=== PATIENT | male | born 1945 | race Caucasian/White ===

== ENCOUNTER 2022-06-28 09:36 | Emergency (ER) | payer MEDICARE, OTHER, SELFPAY ==
[2022-06-28 10:14] VITALS: BP 136/82; PULSE 58; RESP 16; TEMP 36.4; O2SAT 96; BMI 35.9
--- NOTE | 2022-06-28 11:02 | CRLHL7_ITS ---
For Patients: As a result of the Century Cures Act, medical imaging exams and procedure reports are released immediately into your electronic medical record. You may view this report before your referring provider. If you have questions, please contact your health care provider. INDICATION: Left facial numbness TECHNIQUE: Noncontrast axial CT of the head. Coronal and sagittal reformats. Bone and soft tissue algorithms. COMPARISON: MRI brain report 03/27/2011 FINDINGS: The ventricles and cortical sulci are slightly prominent. No midline shift or mass effect. No acute intracranial hemorrhage or extra-axial fluid collection. Mcgrath-white matter differentiation is grossly maintained. White matter attenuation is unremarkable for age. Intracranial vertebral and carotid plaquing. Empty appearing sella, possibly anatomic variant. Bony calvarium appears grossly intact. Mucosal thickening opacifying the right frontal recess. Clear mastoid air cells. Orbits are unremarkable. IMPRESSION: 1. No evidence of acute intracranial abnormality. 2. Mucosal thickening nearly opacifying the right frontal recess. Please note that all CT scans at this facility use dose modulation, iterative reconstruction, and/or weight-based dosing when appropriate to reduce radiation dose to as low as reasonably achievable. Dictated by Patricia Davidson MD @ 06/28/2022 12:12:08 PM (Electronically Signed)
--- NOTE | 2022-06-28 11:08 | ED.GENADULT ---
HPI - General Adult General Time Seen by Provider: 11:09 Date Seen: 06/28/22 Chief complaint: Neuro Symptoms/Altered Deficit Stated complaint: tingling on left side of face and head Time Seen by Provider: 06/28/22 10:50 Source: patient Mode of arrival: ambulatory Limitations: no limitations History of Present Illness HPI narrative: Patient is a very pleasant 76-year-old white male who presents with some left facial numbness that occurred last night, he took an aspirin, it went away. He had recurred again today. He feels a little bit of a tingling over the top part of his left parietal area little bit in his cheek. No facial weakness, no fevers chills, no COVID symptoms. He has not had Hsu's palsy before. He does not have any lid leg or mouth changes, no auditory changes no weakness of the mouth, or eyelid leg. Patient has had no chest pain breathing problem he reported. He reported the nurses that he has had some burping issues but that is been going on for many months and years he has a cardiology follow-up regularly for a check on wall motion changes in the bottom of his heart but that is been stable. He denies chest pain, neck pain or arm pain no nausea vomiting diaphoresis Related Data Home Medications Medication Instructions Recorded Confirmed amlodipine 10 mg tablet 10 mg PO QDAY 04/10/22 06/28/22 ascorbic acid (vitamin C) 500 mg mg PO 04/10/22 04/10/22 capsule atorvastatin 40 mg tablet 40 mg PO QPM 04/10/22 06/28/22 multivitamin (Daily Multi-Vitamin 1 tab PO QDAY 04/10/22 06/28/22 tablet) omega-3 fatty acids-fish oil 360 1 cap PO QDAY 04/10/22 06/28/22 mg-1,200 mg capsule (Fish Oil) Allergies Allergy/AdvReac Type Severity Reaction Status Date / Time niacin Allergy Unknown Verified 06/28/22 10:23 Review of Systems Status of ROS: Reports: 10 or more systems reviewed and unremarkable except as noted in History and below [facility] Surgical History History of repair of pyloric stenosis S/P prostatectomy S/P total knee arthroplasty Social History Smoking Status: Former smoker What tobacco products do you use: cigarettes and pipe Do you use any of these nicotine containing products: None Second hand tobacco smoke exposure: No How often do you have a drink containing alcohol: 2-4 times a month How many standard drinks containing alcohol do you have on a typical day: 1 or 2 How often do you have six or more drinks on one occasion: Never AUDIT-C Alcohol total score: 2 Non-prescribed substance use: denies use Exam Narrative: Exam Narrative: Objective: Patient is alert orient x3 very pleasant man Vital signs unremarkable No facial asymmetry, no lid lag, no mouth changes tongue protrudes midline, no skin rashes over the face. No sensory changes to palpation over the cheek or scalp Neck is supple Neurologic upper extremities unremarkable Heart rhythm regular heart murmur Abdomen benign soft Periphery good perfusion, skin warm and dry. Const: Vital Signs, click to edit/add: Vital Signs - 24 hr 06/28/22 10:14 06/28/22 11:40 Temperature 97.6 F Pulse Rate [Right Pulse Oximeter] 58 L 59 L Respiratory Rate 16 16 Blood Pressure [Ri ght Upper Arm] 136/82 134/89 Pulse Oximetry 96 97 Oxygen Delivery Me thod Room Air Room Air Course Vital Signs Vital signs: Initial Vital Signs Temperature 97.6 F 06/28/22 10:14 Temperature Source Temporal Artery Scan 06/28/22 10:14 Pulse Rate 58 L 06/28/22 10:14 Respiratory Rate 16 06/28/22 10:14 Blood Pressure 136/82 06/28/22 10:14 Blood Pressure Mean 100 06/28/22 10:14 Blood Pressure Position Sitting 06/28/22 10:14 Pulse Oximetry 96 06/28/22 10:14 Oxygen Delivery Method 06/28/22 10:14 Vital Signs Temperature 97.6 F 06/28/22 10:14 Pulse Rate 58 L 06/28/22 10:14 Respiratory Rate 16 06/28/22 10:14 Blood Pressure 136/82 06/28/22 10:14 Pulse Oximetry 96 06/28/22 10:14 Oxygen Delivery Method 06/28/22 10:14 Temperature 97.6 F 06/28/22 10:14 Pulse Rate 59 L 06/28/22 11:40 Respiratory Rate 16 06/28/22 11:40 Blood Pressure 134/89 06/28/22 11:40 Pulse Oximetry 97 06/28/22 11:40 Oxygen Delivery Method 06/28/22 11:40 Medical Decision Making MDM Narrative Medical decision making narrative: Patient has had some dysesthesia around his mouth and over his scalp. Unclear etiology does not really appear stroke-like although I would think a CT scan to rule out stroke would be appropriate. Also he has had no other neurologic complaints. He does have some sensation twisting frame changer his scalp and forehead certainly he could have some pre shingles type since or sensory change or even a Hsu's palsy developing. But this point he does not have evidence of that. I would recommend careful watching of his facial movements an eye and mouth if he develops any changes he should promptly seek recheck. Will check a head CT laboratory studies today. Disposition pending their findings. Addendum: The patient's head CT is read as negative, lab studies look reassuring, his symptoms are not really consistent up with Hsu's palsy to start treatment, but if he develops facial changes he should return to ED. would recommend if he can tolerate aspirin an aspirin daily until he sees Dr. Montano in the next couple of days. Return sooner to ED problems or concerns Lab Data Labs: Lab Results 06/28/22 06/28/22 Range/Units 11:18 11:18 WBC 5.11 (4.50-11.00) K/uL RBC 4.84 (4.30-5.90) m/uL Hgb 14.5 (13.5-17.5) gm/dL Hct 43.5 (37.0-53.0) % MCV 90 (80-100) fL MCH 30 (26-34) pg MCHC 33 (32-36) gm/dL RDW Coeff of Laura 13.0 (11.5-15.5) % Plt Count 279 (140-440) K/uL Neut % (Auto) 67.1 (42.0-72.0) % Lymph % (Auto) 20.0 (20-44) % Claiborne % (Auto) 9.4 (0.0-11.0) % Eos % (Auto) 2.7 (0.0-7.0) % Baso % (Auto) 0.6 (0.0-3.0) % Neut # (Auto) 3.43 (1.7-7.0) K/uL Lymph # (Auto) 1.02 (0.90-2.90) K/uL Claiborne # (Auto) 0.50 (0.00-0.90) K/UL Eos # (Auto) 0.14 (0.00-0.50) K/uL Baso # (Auto) 0.03 (0.00-0.30) K/uL Abs Immat Gran (auto) 0.01 (0.00-0.30) K/uL Sodium 137 (135-149) mmol/L Potassium 4.5 (3.6-5.1) mmol/L Chloride 103 (96-114) mmol/L Carbon Dioxide 25 (20-32) mmol/L BUN 23 (7-30) mg/dL Creatinine 1.1 (0.5-1.5) mg/dL Estimated Creat Clear 58.07 Estimated GFR 69 ml/min Glucose 125 H (60-115) mg/dL Calcium 9.7 (8.4-10.6) mg/dL Discharge Plan Discharge Clinical Impression: Facial tingling Patient Disposition: Home, Self-Care Condition: Improved Additional Instructions: Light activity, continue home medications, if he has tolerated aspirin he can take that daily, follow up with primary care within 48 hours, return to ED sooner problems concerns. He develops any facial weakness, or other changes he should return back to the ED. He certainly could be developing Hsu's palsy, but at this point symptoms are not consistent enough that I would recommend treatment. Activity Level: Light activity Discharge Diet: Regular Prescriptions: No Action atorvastatin 40 mg tablet 40 mg PO QPM multivitamin [Daily Multi-Vitamin] Tablet 1 tab PO QDAY amlodipine 10 mg tablet 10 mg PO QDAY omega-3 fatty acids-fish oil [Fish Oil] 360-1,200 mg capsule 1 cap PO QDAY ascorbic acid (vitamin C) 500 mg capsule PO Follow Up/Referrals: Joel Munoz MD [Primary Care Provider] - Stand Alone Forms: IMASTE Info Instructions
--- OUTSIDE RECORDS SUMMARY | 2022-06-28 11:09 | XMS_ITS | Clinical Summary ---
:1945 Author Organization [facility] [place] [address] Care Team Providers Name Role Phone Madi Laughlin MD Unavailable Unavailable Joel Munoz MD Primary Care Provider Allergies Active Allergy Reactions Severity Noted Date Comments Lisinopril Cough Niacin Palpitations Heart pounding Medications Medication Sig Dispensed Refills Start Date End Date Status multivitamin (MVI) Take 1 tablet by 0 12/02/2010 Active tablet mouth once daily. cholecalciferol (VITAMIN Take 1 tablet by 0 12/03/19 11 Active D) 1,000 unit tablet mouth once daily. calcium carbonate Take 500 mg by 0 12/02/2010 Active CHEWABLE (TUMS) 200 mg mouth every 8 (500 mg) chewable tablet hours if needed for Heartburn. ascorbic acid (VITAMIN Take 1 tablet by 0 11/22/2012 Active C) 500 mg tablet mouth once daily. nitroglycerin Place 1 tablet 50 tablet 0 09/08/2019 Active (NITROSTAT) 0.4 mg under the tongue sublingual every 5 minutes tabletIndications: FORTUNE if needed for (dyspnea on exertion) Chest Pain. docosahexaenoic acid Take 1 Capsule 0 04/28/2011 Active (DOCOSAHEXANOIC ACID by mouth. ORAL) cyanocobalamin (Vitamin Take 1 Tablet 0 10/31/2021 Active B-12) 1,000 mcg tablet (1,000 mcg) by mouth once daily. atorvastatin (LIPITOR) Take 1 Tablet 90 Tablet 3 10/31/2021 Active 40 mg tabletIndications: (40 mg) by mouth Non-occlusive coronary at bedtime. artery disease, Hyperlipidemia, unspecified hyperlipidemia type ferrous sulfate 325 mg Take 1 Tablet 90 Tablet 3 11/02/2021 Active delayed release (325 mg) by tabletIndications: Iron mouth once daily deficiency anemia, with a meal. unspecified iron deficiency anemia type amLODIPine (NORVASC) 10 Take 1 Tablet 90 Tablet 3 01/09/2022 Active mg tabletIndications: (10 mg) by mouth Hypertension, once daily. 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 focal infiltrating well dif ferentiated adenocarcinoma Personal history of colonic polyps 12/08/2011 Overview: Colonoscopy 11/2011 normal repeat in 5 ye ars Colonoscopy 01/2017 hyperplastic polyp re peat in 5 years Obesity 12/23/2010 Prediabetes 12/23/2010 Unspecified essential hypertension 01/23/2008 Resolved Problems Problem Noted Date Resolved Date Anemia of chronic disease 12/24/2010 08/06/2017 Malignant neoplasm of prostate 01/23/2008 1 Overview: 1998 Other and unspecified hyperlipidemia 04/2013 Elevated prostate specific antigen (PSA) 11/05/2008 Encounters Date Type Specialty Care Team Description 04/25/2022 Telephone Joel Munoz MD 04/18/2022 Office Visit Joel Munoz MD Derm Problem (Spot on head) 04/18/2022 Travel from Last 3 Months Immunizations Name Administration Dates Next Due COVID-19 vaccine (Rowdy-J&J) EILEEN BURCIAGA 02/10/2021 Influenza, IIV3 (Age >=3 years) 08/19/2007, 11/08/2006 Pneumococcal Poly,23-Valent (Pneumovax) 02/28/2010 Pneumococcal conj 13-Valent (Prevnar 13) 03/24/2015 Td (Age >=7 Years) 11/30/2004 Tdap 01/19/2022, 12/02/2010 Zoster (Zostavax-ZVL, live) 01/05/2014 Family History Medical History Relation Name Comments Hypertension Father at 90. had pacer Cancer-breast Mother Relation Name Status Comments Father had by pass Mother Social History Tobacco Use Types Packs/Day Years Used Date Former Smoker 1.5 7 Quit: 09/17/18 65 Smokeless Tobacco: Never Used Tobacco Cessation: Counseling Given: Yes Alcohol Use Standard Drinks/Week Comments Yes 5 (1 standard drink = 0.6 oz pure alcoho l) a couple beers per month Alcohol Habits Answer Date Recorded How often do you have a drink containing Monthly or less 09/02/2020 alcohol? How many drinks containing alcohol do you have 1 or 2 08/12/2019 on a typical day when you are drinking? How often do you have six or more drinks on Not asked one occasion? 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 Respiratory Rate 14 05/20/2020 8:38 AM CDT Oxygen Saturation 98% 04/18/2022 9:05 AM CDT Inhaled Oxygen Concentration - - Weight 112.7 kg (248 lb 8 oz) 04/18/2022 9:05 AM CDT Height 180.5 cm (5' 11.06) 10/31/2021 8:11 AM SODA ROOM OPERATOR Body Mass Index 34.6 10/31/2021 8:11 AM SODA ROOM OPERATOR Plan of Treatment Upcoming Encounters Date Type Specialty Care Team Description 09/01/2022 Office Visit Jayden James MD [address] [facility] [address] [place], [place] [id number] (Wo rk) 11/02/2022 Office Visit Joel Munoz MD [address] [facility] [address] [place] [id number] (Wo rk) Health Maintenance Due Date Last Done Comments Hepatitis C screening for age 1208/20/1963 18-79 Zoster (shingles) series for age 0603/02/2014 01/05/2014 50+ (2 of 3) COVID-19 vaccine series (2 - 04/07/2021 02/10/2021 Booster for Rowdy series) Influenza for age 65+ 05/18/2022 08/19/2007, 11/08/2006 BMI (ht and wt on same day) for 10/31/2022 10/31/2021, 08/17, age 18+ 09/02/2020, Additional history exists Depression screening for age 12+ 10/31/2022 10/31/2021, , 08/12/2019, Additional history exists Medicare Wellness for age 65+ 10/31/2022 10/31/2021, 2019, 08/12/2019, Additional history exists Tetanus booster 01/20/2032 01/19/2022, 12/02/2010, 11/30/2004 Pneumococcal series for age 65+ Completed 03/24/2015, 02/15 Tdap Completed 01/19/2022, 12/02/2010 Results Not on filefrom Last 3 Months Insurance Payer Benefit Plan / Subscriber ID Effective Dates Phone Addre ss Type Group MEDICARE PART B MEDICARE PART B [id number] 2009-Presen ATTN: CLAIMS - HB USE ONLY HB ONLY t [address] 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 Peña Urology 12/02/10 Jani Logan 11/22/12
[2022-06-28 11:29] LABS: Basophils Absolute Auto 0.03 K/uL (0.00-0.30); Basophils Percent Auto 0.6 % (0.0-3.0); Eosinophils Absolute Auto 0.14 K/uL (0.00-0.50); Eosinophils Percent Auto 2.7 % (0.0-7.0); Hematocrit 43.5 % (37.0-53.0); Hemoglobin* 14.5 gm/dL (13.5-17.5); Immature Granulocytes Abs Auto 0.01 K/uL (0.00-0.30); Lymphocytes Absolute Auto 1.02 K/uL (0.90-2.90); Mean Corpuscular HGB Conc 33 gm/dL (32-36); Mean Corpuscular Hemoglobin 30 pg (26-34); Mean Corpuscular Volume 90 fL (80-100); Monocytes Percent Auto 9.4 % (0.0-11.0); Neutrophils Absolute Auto 3.43 K/uL (1.7-7.0); Neutrophils Percent Auto 67.1 % (42.0-72.0); Platelet Count* 279 K/uL (140-440); Red Blood Count 4.84 m/uL (4.30-5.90); White Blood Count* 5.11 K/uL (4.50-11.00)
[2022-06-28 11:31] LABS: Slide Review Reflex No
[2022-06-28 11:38] LABS: Chloride* 103 mmol/L (96-114)
[2022-06-28 11:39] LABS: Potassium* 4.5 mmol/L (3.6-5.1); Sodium* 137 mmol/L (135-149)
[2022-06-28 11:40] VITALS: BP 134/89; PULSE 59; RESP 16; O2SAT 97
[2022-06-28 11:41] LABS: Creatinine* 1.1 mg/dL (0.5-1.5); Est. Creatinine Clearance* 58.07; Estimated Glomerular Filt Rate 69 ml/min
[2022-06-28 11:42] LABS: Blood Urea Nitrogen* 23 mg/dL (7-30); Calcium* 9.7 mg/dL (8.4-10.6); Carbon Dioxide* 25 mmol/L (20-32); Glucose* 125 mg/dL (60-115)
== END 2022-06-28 12:20 | disposition home or self-care (01) ==
PROVIDERS: Emergency Provider Family Medicine; PCP Surgery
DX: R29.810 Facial weakness (principal)
CPT/HCPCS: 36415; 70450; 80048; 85025; 99284

== ENCOUNTER 2022-11-06 11:10 | Emergency (ER) | payer MEDICARE, OTHER, SELFPAY ==
[2022-11-06 11:13] VITALS: BP 167/90; PULSE 68; RESP 18; TEMP 36.6; O2SAT 96; BMI 35.5
--- NOTE | 2022-11-06 13:18 | XR_ITS ---
Patient: STEPHANIE DOWD Facility:?[facility] Patient ID:?[id number] Site Patient ID:?[id number]. Site :?[id number] Study:?XRay-Chest 2 VIEW-11/06/2022 2:04:45 PM Ordering Physician:Eleni Cottrell Final Report: INDICATION: Left-sided pain. COMPARISON: None. TECHNIQUE: PA and lateral views of the chest. FINDINGS: The cardiomediastinal silhouette and pulmonary vasculature are within normal limits. The lungs are clear. No pleural effusion or pneumothorax identified. There is a calcified granuloma within the right lung base. A moderate size gastric hiatus hernia is present. There are degenerative changes throughout the thoracic spine. IMPRESSION: No acute abnormality. Dictated by Francis Corley MD @ 11/06/2022 2:08:00 PM Signed by:?Francis Corley MD @11/06/2022 2:08:00 PM (Electronic Signature)
--- NOTE | 2022-11-06 14:45 | ED.NURSE ---
Left without receiving discharge instructions.
--- NOTE | 2022-11-06 20:11 | ED.GENADULT ---
HPI - General Adult General Date Seen: 11/06/22 Chief complaint: Fall/Minor Trauma Stated complaint: Fell earlier, L side pain Time Seen by Provider: 11/06/22 12:37 Source: patient Mode of arrival: ambulatory Limitations: no limitations History of Present Illness HPI narrative: Patient is a 77-year-old male who slipped and fell on the ice earlier today. He says he did hit his head a little bit but he did not have any loss of consciousness, does not take any blood thinners, does not have a headache. Since then he has noticed that the left side of his neck it started to hurt a little bit too but does not have any midline pain. He is really here because he has noticed since then that he has a focal area of tenderness in the left lower chest. When he lays on that side, goes to set up, moves or presses on it he has pain there. He is wondering about a possible broken rib. Does not have any shortness of breath. Does not have any abdominal pain or other back pain. Related Data Home Medications Medication Instructions Recorded Confirmed amlodipine 10 mg tablet 10 mg PO QDAY 04/10/22 11/06/22 ascorbic acid (vitamin C) 500 mg mg PO 04/10/22 08/28/22 capsule atorvastatin 40 mg tablet 40 mg PO QPM 04/10/22 11/06/22 multivitamin (Daily Multi-Vitamin 1 tab PO QDAY 04/10/22 11/06/22 tablet) omega-3 fatty acids-fish oil 360 1 cap PO QDAY 04/10/22 11/06/22 mg-1,200 mg capsule (Fish Oil) cholecalciferol (vitamin D3) 25 25 mcg PO QDAY 08/28/22 11/06/22 mcg (1,000 unit) capsule (Vitamin D3) cyanocobalamin (vitamin B-12) 100 100 mcg PO QDAY 08/28/22 11/06/22 mcg tablet (Vitamin B-12) Allergies Allergy/AdvReac Type Severity Reaction Status Date / Time niacin Allergy Unknown heart Verified 08/28/22 14:30 racing, flushed Review of Systems Status of ROS: Reports: 6 or more systems reviewed and unremarkable except as noted in History and below [facility] Surgical History History of repair of pyloric stenosis S/P prostatectomy 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) Status post total right knee replacement (08/02/16) Social History Smoking Status: Former smoker What tobacco products do you use: cigarettes Smoking quit date/years: >15 years ago and pipe Do you use any of these nicotine containing products: None Second hand tobacco smoke exposure: No How often do you have a drink containing alcohol: 2-4 times a month How many standard drinks containing alcohol do you have on a typical day: 1 or 2 How often do you have six or more drinks on one occasion: Never AUDIT-C Alcohol total score: 2 Non-prescribed substance use: denies use Exam Narrative: Exam Narrative: Vital signs as noted above. In general, an alert, well-appearing patient. Breathing easily. Head: Normocephalic, atraumatic. No hematoma, abrasion, laceration. Eyes: Pupils are equal reactive. Extraocular movements are full. Conjunctivae are normal. ENT: Mucous membranes are moist. Throat is normal. Neck: Supple without lymphadenopathy. Nontender to palpation. Heart: Regular rate and rhythm. No murmur or rub. Lungs: Clear bilaterally. No increased work of breathing, crackles or wheezes. He has an area of reproducible chest wall tenderness in the left anterior lateral chest wall. No crepitus or subQ air. No evidence of bruising or visible trauma. Abdomen: Soft and nontender. No organomegaly. Extremities: Well perfused. No edema. No calf tenderness. Pulses intact. Neurologic: Patient is alert and oriented to person and place. Speech is fluent. Face is symmetric. Moves all extremities equally. Affect: Normal. Skin: Warm and dry. Well perfused. Const: Vital Signs, click to edit/add: Vital Signs - 24 hr 11/06/22 11:13 Temperature 97.8 F Pulse Rate [Pulse Oximeter] 68 Respiratory Rate 18 Blood Pressure [Ri ght Upper Arm] 167/90 H Pulse Oximetry 96 Oxygen Delivery Me thod Room Air Documenting provider has reviewed patient's vital signs: yes Course Course Hospital Course: In the absence of significant head trauma, headache, vomiting, or anticoagulation, I do not think imaging of his head is necessary. Likewise, he does not have any posterior neck pain and I do not think cervical spine CT is needed. With regard to his chest, we discussed options of chest x-ray to evaluate for possible pneumothorax, pleural effusion/hemothorax etcetera with the understanding that we would likely not be able to see any underlying nondisplaced rib fracture, versus CT scan which may give us a chance to see rib fracture. He acknowledged that there would not be any difference in treatment if we were able to see a rib fracture or not, and therefore opted to just get a chest x-ray today. I do think that is reasonable given the minor mechanism of his accident and minimal symptoms that he is having, reassuring exam, unremarkable vital signs aside from mild hypertension. PA and lateral chest by my review did not show any abnormalities. Final radiology read is likewise negative. Have discussed with him that assuming this is the rib fracture these take about 6-8 weeks to heal. If it ends up that this is just contusion it will heal faster. Would recommend ice, Tylenol, ibuprofen is acceptable for few days if he tolerates this. Primary care follow-up for further issues, return for significant worsening such as shortness of breath, severe pain, new symptoms such as severe headache, vomiting, confusion etc.. Vital Signs Vital signs: Initial Vital Signs Temperature 97.8 F 11/06/22 11:13 Temperature Source Temporal Artery Scan 11/06/22 11:13 Pulse Rate 68 11/06/22 11:13 Respiratory Rate 18 11/06/22 11:13 Blood Pressure 167/90 H 11/06/22 11:13 Blood Pressure Mean 115 11/06/22 11:13 Blood Pressure Position Supine 11/06/22 11:13 Pulse Oximetry 96 11/06/22 11:13 Oxygen Delivery Method 11/06/22 11:13 Vital Signs Temperature 97.8 F 11/06/22 11:13 Pulse Rate 68 11/06/22 11:13 Respiratory Rate 18 11/06/22 11:13 Blood Pressure 167/90 H 11/06/22 11:13 Pulse Oximetry 96 11/06/22 11:13 Oxygen Delivery Method 11/06/22 11:13 Temperature 97.8 F 11/06/22 11:13 Pulse Rate 68 11/06/22 11:13 Respiratory Rate 18 11/06/22 11:13 Blood Pressure 167/90 H 11/06/22 11:13 Pulse Oximetry 96 11/06/22 11:13 Oxygen Delivery Method 11/06/22 11:13 Discharge Plan Discharge Clinical Impression: Left rib fracture Patient Disposition: Home, Self-Care Condition: Stable Instructions: Rib Fracture (ED) Additional Instructions: Ibuprofen or Tylenol as needed, ice. Rib fractures take about 6 weeks to heal. Based on your exam, I think he probably do have a rib fracture. If on the other hand this is simply a bruise, it will heal more quickly. Your chest x-ray is normal. You will probably have more soreness in your neck tomorrow but this should improve thereafter. If you have severe headache, vomiting, confusion or other significant head symptoms, return for re-evaluation. Prescriptions: No Action atorvastatin 40 mg tablet 40 mg PO QPM multivitamin [Daily Multi-Vitamin] Tablet 1 tab PO QDAY amlodipine 10 mg tablet 10 mg PO QDAY omega-3 fatty acids-fish oil [Fish Oil] 360-1,200 mg capsule 1 cap PO QDAY ascorbic acid (vitamin C) 500 mg capsule PO cyanocobalamin (vitamin B-12) [Vitamin B-12] 100 mcg tablet 100 mcg PO QDAY cholecalciferol (vitamin D3) [Vitamin D3] 25 mcg (1,000 unit) capsule 25 mcg PO QDAY Follow Up/Referrals: Joel Munoz MD [Primary Care Provider] - Stand Alone Forms: [employer] Info Instructions
== END 2022-11-06 14:48 | disposition home or self-care (01) ==
PROVIDERS: Emergency Provider Emergency Medicine; PCP Surgery
DX: S22.32XA Fracture of one rib, left side, initial encounter for closed fracture (principal); W00.0XXA Fall on same level due to ice and snow, initial encounter
CPT/HCPCS: 71046; 99283; 99284

== ENCOUNTER 2022-11-17 13:32 | Outpatient (CLI) | payer MEDICARE, OTHER, SELFPAY ==
--- NOTE | 2022-11-17 14:00 | CRLHL7_ITS ---
For Patients: As a result of the Century Cures Act, medical imaging exams and procedure reports are released immediately into your electronic medical record. You may view this report before your referring provider. If you have questions, please contact your health care provider. CT ANGIOGRAM HEAD DATE: 11/17/2022 CLINICAL HISTORY: Patient with brain aneurysm. TECHNIQUE: Standard helical CT image acquisition through the intracranial circulation following intravenous administration of contrast material with bolus tracking. Multiplanar reconstructed images were performed and interpreted. COMPARISON: MRA 10/09/2022. FINDINGS: There is no intracranial aneurysm or large vessel occlusion. 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 There is an infundibulum at the origin of the right posterior communicating artery. The right internal carotid artery is normal. The right middle cerebral artery and its branches are normal. The right anterior cerebral artery and its branches are normal. The left middle cerebral artery and its branches are normal. The left anterior cerebral artery and its branches are normal. The anterior communicating artery is well visualized and appears normal. The right vertebral artery and PICA are normal. The left vertebral artery and PICA are normal. The vertebral arteries are codominant. The basilar artery is patent and appears normal. The right posterior cerebral artery is normal. The left posterior cerebral artery is normal. IMPRESSION: 1. No intracranial aneurysm or large vessel occlusion. 2. 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 3. Infundibulum at the origin of the right posterior communicating artery. Please note that all CT scans at this facility use dose modulation, iterative reconstruction, and/or weight-based dosing when appropriate to reduce radiation dose to as low as reasonably achievable. Dictated by: Apoorva Villavicencio MD @ 11/17/2022 19:23:58 (Electronically Signed)
[2022-11-17 14:11] LABS: Estimated Glomerular Filt Rate 77 ml/min
== END 2022-11-17 13:33 | disposition home or self-care (01) ==
LOC: CT 13:32
PROVIDERS: PCP Surgery; Visit Provider Radiology Diagnostic Radiology
DX: I67.1 Cerebral aneurysm, nonruptured (principal)
CPT/HCPCS: 36415; 70496; 82565; Q9967

== ENCOUNTER 2023-01-22 10:25 | Outpatient (CLI) | payer MEDICARE, OTHER, SELFPAY ==
--- NOTE | 2023-01-22 11:00 | CRLHL7_ITS ---
For Patients: As a result of the Century Cures Act, medical imaging exams and procedure reports are released immediately into your electronic medical record. You may view this report before your referring provider. If you have questions, please contact your health care provider. INDICATION: Abdominal pain. Right lower quadrant pain. Right lateral side pain. Pyloric stenosis. Prostatectomy. TECHNIQUE: CT of the abdomen and pelvis. Contrast enhanced 122 cc nonionic Isovue-370 administered. COMPARISON: None. FINDINGS: Cluster of calcified granulomas at the extreme right lung base image 6 series 3. Minor fibrosis posteromedial right lower lobe of the lung image 13 series 3. Moderately large esophageal hiatal hernia. Thickening of the distal esophagus/herniated segment of the stomach. Comparison with any prior studies recommended. Endoscopy may be helpful if clinically indicated. No pleural or pericardial effusions. Calcified splenic granulomas. No splenomegaly. Accessory splenule left upper quadrant with calcified splenic granulomas seen on image 29 series 2 of no clinical significance. The liver is negative for masses or biliary ductal dilatation. Tiny calcified granuloma within the liver. Normal-appearing gallbladder. In the region of the pancreatic head, likely arising from the pancreatic head, image 34 series 2, is a well-circumscribed cystic lesion measuring 2.3 x 2.0 cm. While this could reflect an IPMN, comparison with any prior studies recommended as a 1st step. If none are available, an MRI may be helpful. No pancreatic ductal dilatation. Bilateral adrenal gland nodules likely adenomas. The nodule on the right measures 2.1 cm and on the left 1.5 cm. No hydronephrosis of either kidney. No solid masses or stones. Right renal cysts. No cysts within the left kidney. Dense vascular calcification within the abdominal aorta and iliac arteries both of which are mildly tortuous. The inferior vena cava is unremarkable. The appendix is likely present on image 83 series 2 and also image 66 series 4 and is within normal limits. There is no CT evidence for acute appendicitis. Within the low left hemipelvis is a fairly well-circumscribed low-attenuation structure possibly a small urinary bladder diverticulum or less likely a small seroma or lymphocele. This measures 2.5 x 1.9 cm. The urinary bladder although partly decompressed is otherwise grossly unremarkable. Surgically absent prostate gland and seminal vesicles. There is no evidence for small or large bowel obstruction. There is likely some degree of mild colonic constipation. Please correlate clinically. No evidence for diverticulitis. Small right inguinal hernia containing fat and a knuckle of small bowel without incarceration. Small fat containing left inguinal hernia. Possible small left-sided hydrocele incompletely visualized. The included skeleton is negative for lytic or blastic lesions. Scattered degenerative and hypertrophic change of the included lower thoracic/lumbar spine with multilevel degenerative disc disease. Mild anterolisthesis of L5 relationship to S1. IMPRESSION: 1. Small bilateral inguinal hernias right greater than left. The right inguinal hernia contains a knuckle of small bowel without incarceration. The left inguinal hernia contains only fat. 2. Possible colonic constipation. Please correlate clinically. There is no evidence for appendicitis or diverticulitis. 3. Cystic lesion in the pancreatic head possibly an IPMN. Comparison or follow-up recommended. This could include an MRI of the pancreas. 4. Bilateral adrenal gland nodules right greater than left likely due to adenomas. 5. Granulomatous change right lung base as well as within the liver and spleen. 6. Right renal cysts. Moderately large hiatal hernia. Thick-walled herniated segment. Consider endoscopy if not previously performed. Please note that all CT scans at this facility use dose modulation, iterative reconstruction, and/or weight-based dosing when appropriate to reduce radiation dose to as low as reasonably achievable. Dictated by Blair Garcia MD @ 01/22/2023 7:06:58 PM (Electronically Signed)
[2023-01-22 11:21] LABS: Estimated Glomerular Filt Rate 77 ml/min
== END 2023-01-22 10:26 | disposition home or self-care (01) ==
LOC: CT 10:26
PROVIDERS: PCP Surgery; Visit Provider Student in an Organized Health Care Education/Training Program
DX: R10.31 Right lower quadrant pain (principal); K40.90 Unilateral inguinal hernia, without obstruction or gangrene, not specified as recurrent; K59.00 Constipation, unspecified; K86.2 Cyst of pancreas; N28.1 Cyst of kidney, acquired
CPT/HCPCS: 36415; 74177; 82565; Q9967

== ENCOUNTER 2023-05-31 13:42 | Emergency (ER) | payer MEDICARE, OTHER, SELFPAY ==
[2023-05-31] VITALS (11 sets, daily range): BP systolic 148–152; BP diastolic 82–94; PULSE 57–89; RESP 18–20; TEMP 36.6; O2SAT 95–99; BMI 35.2
[2023-05-31 14:20] LABS: Troponin, Point-of-Care* 0.01 ng/ml (0.01-0.04)
--- NOTE | 2023-05-31 14:20 | CRLHL7_ITS ---
For Patients: As a result of the Century Cures Act, medical imaging exams and procedure reports are released immediately into your electronic medical record. You may view this report before your referring provider. If you have questions, please contact your health care provider. INDICATION: Shortness of breath, chest pain. TECHNIQUE: Chest 2 views. COMPARISON: Chest radiograph 11/06/2022. FINDINGS: No focal consolidation, pleural effusion, or pneumothorax. Calcified granuloma right lung base. Linear atelectasis or scarring left lung base. Heart size upper limits of normal. Normal pulmonary vascularity. Moderate hiatal hernia. Degenerative changes of the spine. Chronic anterior wedging of a mid thoracic vertebral body. IMPRESSION: 1. No acute cardiopulmonary findings. 2. Moderate hiatal hernia. Dictated by Cheyanne Sanchez MD @ 05/31/2023 3:56:22 PM (Electronically Signed)
--- NOTE | 2023-05-31 14:32 | ED_ITS ---
HPI - Chest Pain General Time Seen by Provider: 14:32 Date Seen: 05/31/23 Chief Complaint: Chest Pain Stated Complaint: chest pain Time Seen by Provider: 05/31/23 14:07 History of Present Illness HPI narrative: This is a 77-year-old male with a past medical history including hypertension, pyloric stenosis, history of prostate cancer with prostatectomy, bilateral knee replacements. He presents to the ER today for evaluation of chest pain. He does not have any known history of coronary artery disease, heart valve disease or other cardiac problem. He has had a history of chest pains in the past and has had previous workup through his primary care provider is [facility] and through the software applications architect from [facility] (presumably [facility]? ). He reports that in the past he has had an echocardiogram that was presumably normal and a stress test that was normal. After his most recent check with his software applications architect they told him that if he had increasing episodes of pain that they would want him to go to the ER and probably be transferred up to [place] for and further testing (possibly an angiogram, he thinks). He notes that since last week he has had more frequent episodes of pain. Last Sunday at [facility] day he he was starting to have substernal chest discomfort when he walked more than a block. He walked a block and experience pain. It went away when he rested. He then had recurrence of pain when he walked another block and then got better when he rested again. He has had intermittent chest pains, typically triggered by exertion since then. He notes the often the pain get better when he sits down and belches and rests. He has been having chest pain almost every day since last Sunday. His most recent episode of chest pain occurred today when he was walking around the [employer] grocery store. It lasted for a few minutes when he was at the checkout I will and went away after he belched. It was at roughly 1:00 p.m.. He went to his [facility] clinic to try to get an appointment but was told by their nurse to come here to the ER. Related Data Home Medications Medication Instructions Recorded Confirmed amlodipine 10 mg tablet 10 mg PO QDAY 04/10/22 11/06/22 ascorbic acid (vitamin C) 500 mg mg PO 04/10/22 08/28/22 capsule atorvastatin 40 mg tablet 40 mg PO QPM 04/10/22 11/06/22 multivitamin (Daily Multi-Vitamin 1 tab PO QDAY 04/10/22 11/06/22 tablet) omega-3 fatty acids-fish oil 360 1 cap PO QDAY 04/10/22 11/06/22 mg-1,200 mg capsule (Fish Oil) cholecalciferol (vitamin D3) 25 25 mcg PO QDAY 08/28/22 11/06/22 mcg (1,000 unit) capsule (Vitamin D3) cyanocobalamin (vitamin B-12) 100 100 mcg PO QDAY 08/28/22 11/06/22 mcg tablet (Vitamin B-12) Allergies Allergy/AdvReac Type Severity Reaction Status Date / Time niacin Allergy Unknown heart Verified 05/31/23 13:51 racing, flushed [facility] Surgical History History of repair of pyloric stenosis S/P prostatectomy 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) Status post total right knee replacement (08/02/16) Social History (Updated 11/06/22 @ 20:15 by Ronit Bishop MD) Smoking Status: Former smoker What tobacco products do you use: cigarettes Smoking quit date/years: >15 years ago and pipe Do you use any of these nicotine containing products: None Second hand tobacco smoke exposure: No How often do you have a drink containing alcohol: 2-4 times a month How many standard drinks containing alcohol do you have on a typical day: 1 or 2 How often do you have six or more drinks on one occasion: Never AUDIT-C Alcohol total score: 2 Non-prescribed substance use: denies use service: No Exam Narrative Exam Narrative: Constitutional: Appears well-developed and well-nourished. Alert. Conversant. Non toxic. HENT: Head: Atraumatic. Nose: Nose normal. Mouth/Throat: Oral mucosa is clear and moist. no trismus. Pharynx normal. Tonsils symmetric. No tonsillar enlargement, erythema, or exudate. Eyes: Conjunctivae normal. EOM normal. Pupils equal, round, and reactive to light. No scleral icterus. Neck: Normal range of motion. Neck supple. No tracheal deviation present. No JVD Cardiovascular: Normal rate, regular rhythm. No gallop. No friction rub. No murmur heard. Symmetric radial and PT artery pulses Pulmonary/Chest: Effort normal. No stridor. No respiratory distress. No wheezes. No rales. No rhonchi . No tenderness. Abdominal: Soft. Bowel sounds normal. No distension. No mass. No tenderness. No rebound. No guarding. Musculoskeletal: RUE: Normal range of motion. No tenderness. No deformity LUE: Normal range of motion. No tenderness. No deformity RLE: Normal range of motion. No edema. No tenderness. No deformity LLE: Normal range of motion. 2+ edema which has been present for the past year to, unchanged lately.. No tenderness. No deformity Neurological: Alert and oriented to person, place, and time. Normal strength. CN II-VII intact. No sensory deficit. GCS eye subscore is 4. GCS verbal subscore is 5. GCS motor subscore is 6. Normal coordination Skin: Skin is warm and dry. No rash noted. No pallor. Normal capillary refill. Psychiatric: Normal mood. Normal affect. Const Vital Signs, click to edit/add: Vital Signs - 24 hr 05/31/23 13:47 05/31/23 14:14 05/31/23 15:37 Temperature 97.8 F Pulse Rate 57 L Pulse Rate [Right Pulse Oximeter] 89 78 Respiratory Rate 20 18 Blood Pressure [Right Upper Arm] 152/82 H 148/94 H Pulse Oximetry 96 97 97 Oxygen Delivery Method Room Air Room Air 05/31/23 15:50 05/31/23 16:00 05/31/23 16:15 Temperature Pulse Rate 68 66 66 Pulse Rate [Right Pulse Oximeter] Respiratory Rate Blood Pressure [Right Upper Arm] Pulse Oximetry 98 95 96 Oxygen Delivery Method Course Reevaluation(s) Reevaluation #1: Recheck-napping in bed. Arouses easily. No active chest pain. Discussed with Cardiology, Dr. Husain. We discussed the patient's presentation, his recent episodes of chest pain. Cardiology informs me that he has previously had Negative workup with an echo that was normal in 2021 an a stress test that was normal in 2019. Cardiology recommends that if we get serial enzymes that are negative if the patient go home and arrange an outpatient Lexiscan that could be done through his primary care or through the Cardiology Clinic here in [place]. I discussed this plan of care with the patient. He would agree to stay here for a 2nd troponin. This is ordered to be drawn 3 hours after the 1st. The patient remains hemodynamically stable and chest pain-free. I ambulated the patient myself in the ER out of the ER, all the way to the hospital front door and back, approximately 2 blocks. He did not have any chest pain or other symptoms during the ambulation. He felt fine. Vital Signs Vital signs: Initial Vital Signs Temperature 97.8 F 05/31/23 13:47 Temperature Source Temporal Artery Scan 05/31/23 13:47 Pulse Rate 89 05/31/23 13:47 Pulse Rhythm Regular 05/31/23 13:47 Pulse Strength 3+ Normal 05/31/23 13:47 Respiratory Rate 20 05/31/23 13:47 Blood Pressure 152/82 H 05/31/23 13:47 Blood Pressure Mean 105 05/31/23 13:47 Blood Pressure Position Supine 05/31/23 13:47 Pulse Oximetry 96 05/31/23 13:47 Oxygen Delivery Method Room Air 05/31/23 13:47 Vital Signs Temperature 97.8 F 05/31/23 13:47 Pulse Rate 89 05/31/23 13:47 Respiratory Rate 20 05/31/23 13:47 Blood Pressure 152/82 H 05/31/23 13:47 Pulse Oximetry 96 05/31/23 13:47 Oxygen Delivery Method Room Air 05/31/23 13:47 Temperature 97.8 F 05/31/23 13:47 Pulse Rate 66 05/31/23 16:15 Respiratory Rate 18 05/31/23 14:14 Blood Pressure 148/94 H 05/31/23 14:14 Pulse Oximetry 96 05/31/23 16:15 Oxygen Delivery Method Room Air 05/31/23 14:14 MDM - Chest Pain MDM Narrative Medical decision making narrative: This patient presents to the ER today for evaluation of chest pain that has been occurring intermittently for the past few weeks.. Differential was broad. Chest pain is concerning for possible angina given that is often triggered by exertion. However it is not triggered every time he exerts. He was able ambulate a couple of blocks here in the hospital with me without any discomfort. Also reassuring would be the fact that the chest pain resolves with belching. Nonetheless, in this gentleman we give strong consideration to ACS. He had already taken aspirin today prior to arrival. Initial EKG shows pre- existing bundle-branch blocks, LVH but no definite ischemia. First troponin is negative. I discussed with Cardiology from [facility]. They recommend that we get a 2nd troponin and if it remains normal that we should discharge the patient with a plan for an outpatient stress test (Lexiscan). I had a long discussion with the patient. I discussed my concern that his intermittent chest pain could be indicative of unstable angina (partially blocked coronary artery) which would not necessarily show up on troponin testing here in the ER. We would need either stress testing or angiogram to detect partial blockages. If this is unstable angina, there is risk of progression to complete blockage/HI, further workup to detect partial blockage is indicated as soon as possible. To get the workup done by tomorrow we would need to have the patient admitted (ie, transferred to [facility]) for workup. We are unable to do Lexiscan here in the hospital in [place]. Cardiology recommends outpatient workup. For his part, The patient would prefer to do outpatient workup . Have ordered a 2nd troponin to be drawn. If it remains undetectable will discharge the patient from the ER and he will call tomorrow for follow-up with his clinic at [facility] tomorrow. They can arrange an outpatient Lexiscan. Precautions for return to the ER right away with any more episodes of chest pain, worsening pain, or any other symptoms. Discussed with my partner, Dr. Payton, who will follow-up on the 2nd troponin. EKG shows no evidence for pericarditis. Clinical presentation not suggestive of myocarditis. No evidence of palpitations, syncope or other cardiac dysrhythmia. Chest x-ray shows no evidence for pneumonia, pneumothorax, pulmonary edema, pleural effusion, rib fracture, cardiomegaly. Mediastinum is normal on the x-ray. The patient has no ripping or tearing pain through to the back and has symmetric pulses on exam, no other acute neuro findings so I doubt aortic dissection. Risk of radiation and contrast exposure would outweigh the benefit of CT angiogram. We considered PE for this patient. D-dimer normal. He has chronic left lower extremity edema unchanged from baseline. No wheezing or bronchospasm to suggest COPD/asthma. No signs of chest wall cellulitis, shingles, injury. Lab Data Labs: Lab Results 05/31/23 05/31/23 05/31/23 Range/Units 14:09 14:10 15:50 WBC 5.68 (4.50-11.00) K/uL RBC 4.66 (4.30-5.90) m/uL Hgb 14.1 (13.5-17.5) gm/dL Hct 42.3 (37.0-53.0) % MCV 91 (80-100) fL MCH 30 (26-34) pg MCHC 33 (32-36) gm/dL RDW Coeff of Laura 12.5 (11.5-15.5) % Plt Count 273 (140-440) K/uL Neut % (Auto) 63.1 (42.0-72.0) % Lymph % (Auto) 23.9 (20-44) % Bleckley % (Auto) 9.7 (0.0-11.0) % Eos % (Auto) 2.6 (0.0-7.0) % Baso % (Auto) 0.7 (0.0-3.0) % Neut # (Auto) 3.58 (1.7-7.0) K/uL Lymph # (Auto) 1.36 (0.90-2.90) K/uL Bleckley # (Auto) 0.60 (0.00-0.90) K/UL Eos # (Auto) 0.15 (0.00-0.50) K/uL Baso # (Auto) 0.04 (0.00-0.30) K/uL Abs Immat Gran (auto) 0.00 (0.00-0.30) K/uL Imm/Tot Granulo (auto) 0.0 % D-Dimer Quant (PE/DVT) 0.40 (0.00-0.50) ug/ml Sodium 140 (135-149) mmol/L Potassium 3.9 (3.6-5.1) mmol/L Chloride 106 (96-114) mmol/L Carbon Dioxide 24 (20-32) mmol/L Anion Gap 10 (7-15) mEq/L BUN 22 (7-30) mg/dL Creatinine 1.0 (0.5-1.5) mg/dL Estimated Creat Clear 62.86 Estimated GFR 77 ml/min Glucose 148 H (60-115) mg/dL Calcium 9.8 (8.4-10.6) mg/dL Troponin I < 0.01 L (0.01-0.04) ng/mL NT-Pro-B Natriuret Pep 33 pg/mL POC Troponin I 0.01 (0.01-0.04) ng/ml Imaging Data Chest x-ray: My impression: Normal cardiac silhouette and mediastinum. Probable hiatal hernia or gastric hernia. Radiologist's impression: IMPRESSION: 1. No acute cardiopulmonary findings. 2. Moderate hiatal hernia. ECG Data Attestation: I personally reviewed and interpreted this ECG as follows: Interpretation: Normal sinus rhythm . Rate 84 VT 190. QRS axis right bundle branch block. Left anterior fascicular block. LVH with QRS widening. ST segment/T wave: No ST segment elevation or depression. QTc: 4 93 Discharge Plan Discharge Prescriptions: No Action atorvastatin 40 mg tablet 40 mg PO QPM multivitamin [Daily Multi-Vitamin] Tablet 1 tab PO QDAY amlodipine 10 mg tablet 10 mg PO QDAY omega-3 fatty acids-fish oil [Fish Oil] 360-1,200 mg capsule 1 cap PO QDAY ascorbic acid (vitamin C) 500 mg capsule PO cyanocobalamin (vitamin B-12) [Vitamin B-12] 100 mcg tablet 100 mcg PO QDAY cholecalciferol (vitamin D3) [Vitamin D3] 25 mcg (1,000 unit) capsule 25 mcg PO QDAY Follow Up/Referrals: Joel Munoz MD [Primary Care Provider] -
[2023-05-31 15:42] LABS: Basophils Absolute Auto 0.04 K/uL (0.00-0.30); Basophils Percent Auto 0.7 % (0.0-3.0); Eosinophils Absolute Auto 0.15 K/uL (0.00-0.50); Eosinophils Percent Auto 2.6 % (0.0-7.0); Hematocrit 42.3 % (37.0-53.0); Hemoglobin* 14.1 gm/dL (13.5-17.5); Lymphocytes Absolute Auto 1.36 K/uL (0.90-2.90); Lymphocytes Percent Auto 23.9 % (20-44); Mean Corpuscular HGB Conc 33 gm/dL (32-36); Mean Corpuscular Hemoglobin 30 pg (26-34); Mean Corpuscular Volume 91 fL (80-100); Monocytes Percent Auto 9.7 % (0.0-11.0); Neutrophils Absolute Auto 3.58 K/uL (1.7-7.0); Neutrophils Percent Auto 63.1 % (42.0-72.0); Platelet Count* 273 K/uL (140-440); RDW Coefficient of Variation % 12.5 % (11.5-15.5); Red Blood Count 4.66 m/uL (4.30-5.90); White Blood Count* 5.68 K/uL (4.50-11.00)
[2023-05-31 15:45] LABS: Slide Review Reflex No
[2023-05-31 15:56] LABS: Chloride* 106 mmol/L (96-114); Potassium* 3.9 mmol/L (3.6-5.1); Sodium* 140 mmol/L (135-149)
[2023-05-31 15:59] LABS: Anion Gap 10 mEq/L (7-15); Blood Urea Nitrogen* 22 mg/dL (7-30); Calcium* 9.8 mg/dL (8.4-10.6); Carbon Dioxide* 24 mmol/L (20-32); Est. Creatinine Clearance* 62.86; Estimated Glomerular Filt Rate 77 ml/min; Glucose* 148 mg/dL (60-115)
[2023-05-31 16:16] LABS: NT Pro B Type NatriureticPept* 33 pg/mL; Troponin I* < 0.01 ng/mL (0.01-0.04)
[2023-05-31 17:12] LABS: Troponin I* < 0.01 ng/mL (0.01-0.04)
--- NOTE | 2023-06-19 16:13 | ED.GENADULT ---
HPI - General Adult General Chief complaint: Chest Pain Stated complaint: chest pain Time Seen by Provider: 05/31/23 14:07 History of Present Illness HPI narrative: THIS NOTE IS AN ADDENDUM TO MY ER NOTE FROM 05/31/23 (date this patient was seen in the ER). THIS NOTE INCLUDED THE DISCHARGE DIAGNOSIS (chest pain) THAT I INADVERTENTLY OMITTED FROM MY ORIGINAL NOTE. Related Data Home Medications Medication Instructions Recorded Confirmed amlodipine 10 mg tablet 10 mg PO QDAY 04/10/22 11/06/22 ascorbic acid (vitamin C) 500 mg mg PO 04/10/22 08/28/22 capsule atorvastatin 40 mg tablet 40 mg PO QPM 04/10/22 11/06/22 multivitamin (Daily Multi-Vitamin 1 tab PO QDAY 04/10/22 11/06/22 tablet) omega-3 fatty acids-fish oil 360 1 cap PO QDAY 04/10/22 11/06/22 mg-1,200 mg capsule (Fish Oil) cholecalciferol (vitamin D3) 25 25 mcg PO QDAY 08/28/22 11/06/22 mcg (1,000 unit) capsule (Vitamin D3) cyanocobalamin (vitamin B-12) 100 100 mcg PO QDAY 08/28/22 11/06/22 mcg tablet (Vitamin B-12) Allergies Allergy/AdvReac Type Severity Reaction Status Date / Time niacin Allergy Unknown heart Verified 05/31/23 13:51 racing, flushed [facility] Surgical History History of repair of pyloric stenosis S/P prostatectomy 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) Status post total right knee replacement (08/02/16) Social History (Updated 11/06/22 @ 20:15 by Ronit Bishop MD) Smoking Status: Former smoker What tobacco products do you use: cigarettes Smoking quit date/years: >15 years ago and pipe Do you use any of these nicotine containing products: None Second hand tobacco smoke exposure: No How often do you have a drink containing alcohol: 2-4 times a month How many standard drinks containing alcohol do you have on a typical day: 1 or 2 How often do you have six or more drinks on one occasion: Never AUDIT-C Alcohol total score: 2 Non-prescribed substance use: denies use service: No Course Vital Signs Vital signs: Initial Vital Signs Temperature 97.8 F 05/31/23 13:47 Temperature Source Temporal Artery Scan 05/31/23 13:47 Pulse Rate 89 05/31/23 13:47 Pulse Rhythm Regular 05/31/23 13:47 Pulse Strength 3+ Normal 05/31/23 13:47 Respiratory Rate 20 05/31/23 13:47 Blood Pressure 152/82 H 05/31/23 13:47 Blood Pressure Mean 105 05/31/23 13:47 Blood Pressure Position Supine 05/31/23 13:47 Pulse Oximetry 96 05/31/23 13:47 Oxygen Delivery Method Room Air 05/31/23 13:47 Vital Signs Temperature 97.8 F 05/31/23 13:47 Pulse Rate 89 05/31/23 13:47 Respiratory Rate 20 05/31/23 13:47 Blood Pressure 152/82 H 05/31/23 13:47 Pulse Oximetry 96 05/31/23 13:47 Oxygen Delivery Method Room Air 05/31/23 13:47 Temperature 97.8 F 05/31/23 13:47 Pulse Rate 72 05/31/23 17:30 Respiratory Rate 18 05/31/23 14:14 Blood Pressure 148/94 H 05/31/23 14:14 Pulse Oximetry 95 05/31/23 17:30 Oxygen Delivery Method Room Air 05/31/23 14:14 Medical Decision Making Lab Data Labs: Lab Results 05/31/23 05/31/23 05/31/23 Range/Units 14:09 14:10 15:50 WBC 5.68 (4.50-11.00) K/uL RBC 4.66 (4.30-5.90) m/uL Hgb 14.1 (13.5-17.5) gm/dL Hct 42.3 (37.0-53.0) % MCV 91 (80-100) fL MCH 30 (26-34) pg MCHC 33 (32-36) gm/dL RDW Coeff of Laura 12.5 (11.5-15.5) % Plt Count 273 (140-440) K/uL Neut % (Auto) 63.1 (42.0-72.0) % Lymph % (Auto) 23.9 (20-44) % [place] % (Auto) 9.7 (0.0-11.0) % Eos % (Auto) 2.6 (0.0-7.0) % Baso % (Auto) 0.7 (0.0-3.0) % Neut # (Auto) 3.58 (1.7-7.0) K/uL Lymph # (Auto) 1.36 (0.90-2.90) K/uL [place] # (Auto) 0.60 (0.00-0.90) K/UL Eos # (Auto) 0.15 (0.00-0.50) K/uL Baso # (Auto) 0.04 (0.00-0.30) K/uL Abs Immat Gran (auto) 0.00 (0.00-0.30) K/uL Imm/Tot Granulo (auto) 0.0 % D-Dimer Quant (PE/DVT) 0.40 (0.00-0.50) ug/ml Sodium 140 (135-149) mmol/L Potassium 3.9 (3.6-5.1) mmol/L Chloride 106 (96-114) mmol/L Carbon Dioxide 24 (20-32) mmol/L Anion Gap 10 (7-15) mEq/L BUN 22 (7-30) mg/dL Creatinine 1.0 (0.5-1.5) mg/dL Estimated Creat Clear 62.86 Estimated GFR 77 ml/min Glucose 148 H (60-115) mg/dL Calcium 9.8 (8.4-10.6) mg/dL Troponin I < 0.01 L < 0.01 L (0.01-0.04) ng/mL NT-Pro-B Natriuret Pep 33 pg/mL POC Troponin I 0.01 (0.01-0.04) ng/ml Discharge Plan Discharge Clinical Impression: Chest pain Patient Disposition: Home, Self-Care Condition: Stable Instructions: Chest Pain (DC) Additional Instructions: As we discussed, it is very important for you to follow-up with your doctors as soon as possible (tomorrow) to recheck. They should arrange an outpatient stress test of your heart called a ?Lexiscan?. In the meantime, if you have more episodes of chest discomfort, or if you have worsening discomfort, more frequent episodes of discomfort, discomfort that lasts longer, or last longer than 15 minutes, return to the ER immediately. Continue on your regular blood pressure medications and aspirin 81 mg per day until you have your follow-up visit.. Activity Level: No Restrictions Discharge Diet: Regular Prescriptions: No Action atorvastatin 40 mg tablet 40 mg PO QPM multivitamin [Daily Multi-Vitamin] Tablet 1 tab PO QDAY amlodipine 10 mg tablet 10 mg PO QDAY omega-3 fatty acids-fish oil [Fish Oil] 360-1,200 mg capsule 1 cap PO QDAY ascorbic acid (vitamin C) 500 mg capsule PO cyanocobalamin (vitamin B-12) [Vitamin B-12] 100 mcg tablet 100 mcg PO QDAY cholecalciferol (vitamin D3) [Vitamin D3] 25 mcg (1,000 unit) capsule 25 mcg PO QDAY Follow Up/Referrals: Joel Munoz MD [Primary Care Provider] - Stand Alone Forms: [employer] Info Instructions
== END 2023-05-31 17:50 | disposition home or self-care (01) ==
PROVIDERS: Emergency Provider Emergency Medicine; PCP Surgery
DX: R07.9 Chest pain, unspecified (principal)
CPT/HCPCS: 36415; 71046; 80048; 83880; 84484; 85025; 85379; 93005; 99283; 99284; 99285

== ENCOUNTER 2024-07-08 09:48 | Day surgery (SDC) | payer MEDICARE, OTHER, SELFPAY ==
--- OUTSIDE RECORDS SUMMARY | 2024-07-08 09:52 | XMS_ITS | Clinical Summary ---
Author Organization [facility] Address [place], [place] [address] Care Team Providers Care Clinical Scientist Name Role Phone Madi Laughlin MD [facility] Joel Munoz MD Primary Care Provider [phone] Allergies Active Allergy Reactions Criticality Noted Date Comments Aspirin GI Bleeding 07/07/2022 Lisinopril Cough Niacin Palpitations Heart pounding Medications Medication Sig Dispensed Refills Start Date End Date Status multivitamin (MVI) tablet Take 1 tablet by mouth once daily. 0 12/02/2010 Active cholecalciferol (VITAMIN D) 1,000 unit tablet Take 1 tablet by mouth once daily. 0 12/02/2010 Active calcium carbonate CHEWABLE (TUMS) 200 mg (500 mg) chewable tablet Take 500 mg by mouth every 8 hours if needed for Heartburn. 0 12/02/2010 Active ascorbic acid (VITAMIN C) 500 mg tablet Take 1 tablet by mouth once daily. 0 11/22/2012 Active cyanocobalamin (Vitamin B-12) 1,000 mcg tablet Take 1 Tablet (1,000 mcg) by mouth once daily. 10/31/2021 Active acetaminophen (TYLENOL EXTRA STRGTH) 500 mg tabletIndication s:S/P CABG x 2 Take 2 Tablets (1,000 mg) by mouth every 6 hours if needed for Pain. Max acetaminophen dose: 4000mg in 24 hrs. 08/27/2023 Active apixaban (Eliquis) 5 mg tabletIndication s:Atrial fibrillation, unspecified type (HC) Take 1 Tablet (5 mg) by mouth two times daily. 180 Tablet 3 09/20/2023 Active omeprazole 20 mg tabletIndication s:Belching Take 1 Tablet (20 mg) by mouth once daily before a meal. 90 Tablet 3 10/10/2023 Active carvediloL (Coreg) 3.125 mg tabletIndication s:HTN (hypertension) Take 1 Tablet (3.125 mg) by mouth two times daily with meals. 180 Tablet 3 07/03/2024 Active losartan (COZAAR) 25 mg tabletIndication s:HTN (hypertension) Take 1 Tablet (25 mg) by mouth once daily. 90 Tablet 3 07/03/2024 Active rosuvastatin (CRESTOR) 20 mg tabletIndication s:S/P CABG x 2 Take 1 Tablet (20 mg) by mouth at bedtime. 90 Tablet 3 07/03/2024 Active rosuvastatin (CRESTOR) 20 mg tabletIndication s:S/P CABG x 2 Take 1 Tablet (20 mg) by mouth at bedtime. 90 Tablet 3 09/20/2023 4 Discontinue d(Reorder (E-cancel not sent)) carvediloL (Coreg) 3.125 mg tabletIndication s:HTN (hypertension) Take 1 Tablet (3.125 mg) by mouth two times daily with meals. 180 Tablet 3 10/12/2023 4 Discontinue d(*Medicati on adjustment) ferrous sulfate 325 mg delayed release tabletIndication s:Iron deficiency anemia, unspecified iron deficiency anemia type Take 1 Tablet (325 mg) by mouth two times daily with meals. 180 Tablet 3 04/17/2024 4 Discontinue d(*Patient states no longer taking) carvediloL (Coreg) 6.25 mg tabletIndication s:HTN (hypertension) Take 1 Tablet (6.25 mg) by mouth two times daily with meals. 180 Tablet 3 06/19/2024 4 Discontinue d(*Medicati on adjustment) LORazepam (ATIVAN) 1 mg tabletIndication s:Anxiety due to invasive procedure Take 1 Tablet (1 mg) by mouth one time for 1 dose. 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 Overview (08/21/2023): Coronary artery bypass grafting (left internal mammary artery to left anterior descending artery, vein graft to OM) - Dr Naik CAD (coronary artery disease) 2023 Primary osteoarthritis of both knees 2023 Overview (2023): Left TKA Jul, 2017, Right TKA 2018 Pancreatic cyst 04/26/2023 Overview (04/26/2023): Incidentally noted on CT 01/2023 - declined MRI for further evaluation 04/2023 Rotator cuff tear, right 01/09/2023 023 Colon polyp 01/26/2022 Overview (01/26/2022): Colonoscopy 01/2022 2-TA, repeat in 7 years Dilatation of aortic sinus of Valsalva 6 Overview (11/02/2021): Stable on echo 03/2021 Hyperlipidemia 11/11/2015 Primary malignant neoplasm of prostate 4 Overview (02/09/2022): Ariel 3+3. focal infiltrating well differentiated adenocarcinoma Personal history of colonic polyps 12/08/2011 Overview (02/07/2017): Colonoscopy 11/2011 normal repeat in 5 years Colonoscopy 01/2017 hyperplastic polyp repeat in 5 years Prediabetes 12/23/2010 Unspecified essential hypertension 01/23/2008 Resolved Problems Problem Noted Date Diagnosed Date Resolved Date S/P CABG (coronary artery bypass graft) 09/04/2023 09/04/2023 Left rib fracture 01/09/2023 01/09/2023 09/04/2023 Non-occlusive coronary artery disease 01/17/2017 09/04/2023 Anemia of chronic disease 12/24/2010 Obesity 12/23/2010 09/04/2023 Other and unspecified hyperlipidemia 11/22/2012 Elevated prostate specific antigen (PSA) 11/05/2008 Encounters Date Type Department Care Team Description 07/07/2024 10:45 AM CDT Preop Visit [facility] [[email or web address] [address] [facility] [address] Joel Munoz MD Preoperative Exam (Hernia at [facility] [place] 07/08/24) 07/07/2024 Travel 07/07/2024 Telephone [facility] [[email or web address]] [address] [place] [address] Rajni Patterson MD Results (US scrotum) 07/03/2024 8:30 AM CDT Office Visit [place] [address] [place] [address] Zhang Camacho MD Follow Up (F/u Visit /CLEAR FOR SURGERY ON 07/08/2024/PT states feeling good. /Needs to know if he can stop Eliquis for 3 days /Occ chest pain) 07/03/2024 Travel 06/30/2024 7:56 AM CDT - 06/30/2024 11:59 PM CDT Hospital Encounter [facility] [address] [place] [address] Joel Munoz MD Mass of pancreas; Scrotal mass 06/30/2024 Travel 06/23/2024 2:00 PM CDT Office Visit [facility] [[email or web address]] [address] [facility] [place] [address] Rajni Patterson MD Consult (Bilateral inguinal hernias ) 06/23/2024 Travel 06/19/2024 Telephone [facility] [[email or web address]] [address] [place] [address] Joel Munoz MD Results 06/19/2024 Orders Only [facility] [[email or web address]] [address] [facility] [address] Joel Munoz MD <No scans attached> 06/18/2024 9:35 PM CDT - 06/18/2024 10:48 PM CDT Emergency [facility] [address] [place] [address] Jacobo Ojeda MD Hives (Primary Dx); HTN (hypertension) Discharge Disposition: Home Self Care 06/18/2024 10:00 AM CDT Nurse/Clinic Staff Only [facility] [[email or web address]] [facility] [address] Blood Pressure (153/81) 06/18/2024 9:30 AM CDT Ancillary Procedure [facility] [[email or web address]] [address] [facility] [address] 06/18/2024 Travel 06/10/2024 8:00 AM CDT Office Visit [facility] [[email or web address]] [address] [facility] [address] Joel Munoz MD Abdominal Pain/problem (Been going on for a while) 06/10/2024 Travel 04/18/2024 Telephone [facility] [[email or web address]] [address] [facility] [address] Joel Munoz MD Results 04/17/2024 Orders Only [facility] [[email or web address]] [address] [facility] [address] Joel Munoz MD <No scans attached> 04/15/2024 8:25 AM CDT Office Visit [facility] [[email or web address]] [address] [facility] [address] Joel Munoz MD Follow Up (Low iron); Bleeding/Bruising (Bruising easily ); Foot Problem (Foot pain left foot on the top) 04/15/2024 Travel from Last 3 Months Immunizations Name Administration Dates Next Due COVID-19 vaccine (Rowdy-J&J) EILEEN BURCIAGA 1 Influenza Virus, Unspecified 08/19/2007,11/08/19 07 Influenza, IIV3 (Age >=3 years) 08/19/2007,11/08 Pneumococcal Poly,23-Valent (Pneumovax) 02/29/20 10 Pneumococcal conj 13-Valent (Prevnar 13) 015 Td (Age >=7 Years) 11/30/2004 Tdap 01/19/2022,12/02/2010 Zoster (Zostavax-ZVL, live) 01/05/2014 Family History Medical History Relation Name Comments Hypertension Father at 90. had pacer Cancer-breast Mother Relation Name Status Comments Father had by pass Mother Social History Tobacco Use Types Packs/Day Years Used Date Smoking Tobacco: Former Cigarettes 1.5 7 0 09/17/1958 - 09/17/1965 Smokeless Tobacco: Never Tobacco Cessation:Counseling Given: Yes Alcohol Use Standard Drinks/Week Comments Yes 0 (1 standard drink = 0.6 oz pur e alcohol) 2-3 beers weekly PHQ-2 Answer Date Recorded PHQ-2 TOTAL SCORE 0 02/04/2024 Social Connections Answer Date Recorded Frequency of Communication with Friends and Fami ly 0 04/26/2023 Alcohol Use Answer Date Recorded How often do you have a drink containing alcohol ? 3 03/14/2022 How many drinks containing a lcohol do you have on a typical day when you are drinking? 1 03/14/2022 How often do you have five or more drinks on one occasion? 0 03/14/2022 Financial Resource Strain Answer Date R ecorded Difficulty of Paying Living Expenses 3 04/26/2023 Difficulty of Paying Living Expenses Not on file 04/26/2023 Food Insecurity Answer Date Recorded Do you worry your food will run out before you are able to buy more? 1 2023 Transportation Needs Answer Date Record ed Lack of Transportation (Medical) 1 04/26/2023 Housing Stability Answer Date Recorded What is your housing situation today? 1 2023 Sex and Gender Information Value Date Recorded Sex Assigned at Not on file Gender Identity Not on file Sexual Orientation Not on file Obstetrics History Last Filed Vital Signs Vital Sign Reading Time Taken Comments Blood Pressure 151/81 07/07/2024 10:48 AM CDT Pulse 56 07/07/2024 11:13 AM CDT Temperature 37 ??C (98.6 ??F) 06/18/2024 9:50 PM CDT Respiratory Rate 21 06/18/2024 9:50 PM CDT Oxygen Saturation 98% 07/07/2024 10:43 AM CDT Inhaled Oxygen Concentration - - Weight 100.5 kg (221 lb 8 oz) 07/07/2024 10:43 A M CDT Height 177.8 cm (5' 10) 07/03/2024 8:24 AM CDT Body Mass Index 31.78 07/03/2024 8:24 AM CDT Plan of Treatment Upcoming Encounters Date Type Department Care Team (Late st Contact Info) Description 08/04/2024 2:45 PM AGRICULTURIST Orders Only [facility] [[email or web address]] [address] [facility] [address] [place], [place] 08/07/2024 9:50 AM AGRICULTURIST Office Visit [facility] [[email or web address]] [address] [place] [address] Joel Munoz MD [address] [place] [address] 09/18/2024 9:00 AM AGRICULTURIST Office Visit [facility] [[email or web address]] [address] [place] [address] Jason Pack MD [address] [place] [address] Health Maintenance Due Date Last Done Comments Zoster (shingles) series for age 50+ (2 of 3) 03/02/2014 01/05/2014 RSV vaccine for adults or (1 - 1-dose 75+ series) 2019 COVID-19 vaccine series ( - season) 2024 02/10/2021 Influenza for age 65+ 05/18/2024 08/19/2007 , 08/19/2007, 11/08/2006, Additional history exists Depression screening for age 12+ 02/04/2025 02/05/2024, 02/04/2024, 12/28/2023, Additional history exists Medicare Wellness for age 65+ 02/04/2025, 11/02/2022, 10/31/2021, Additional history exists BMI (ht and wt on same day) for age 18+ 07/03/2025 07/03/2024, 02/04/2024, 01/25/2024, Additional history exists Tetanus booster 01/20/2032 01/19/2022, 11/15, 11/30/2004 Pneumococcal series for age 65+ Completed 5, 02/28/2010 Tdap Completed 01/19/2022, 12/02/2010 Hepatitis C screening for ag e 18-79 Completed 09/01/2022 Procedures Procedure Name Priority Date/Time Associated Diagnosis Comments EKG 12 LEAD Today 07/03/2024 8:19 AM CDT Routine general medical examination at a [facility] care facility US SCROTUM WITH DUPLEX Routine 06/30/2024 10:06 AM CDT Scrotal mass MR ABDOMEN PANCREAS WWO Routine 06/30/2024 9:09 AM CDT Mass of pancreas LIPASE STAT 06/18/2024 9:55 PM CDT COMP METABOLIC PANEL STAT 06/18/2024 9:55 PM CDT CBC W PLT NO DIFF STAT 06/18/2024 9:5 5 PM CDT EKG 12 LEAD STAT 06/18/2024 9:[address] ABDOMEN PELVIS W Routine 06/18/2024 1 0:22 AM CDT Abdominal pain, bilateral lower quadrant FERRITIN Routine 06/10/2024 8:51 AM CDT Anemia, unspecified type COMP METABOLIC PANEL Routine 06/10/2024 8:51 AM CDT Non-recurrent bilateral inguinal hernia without obstruction or gangrene CBC W PLT NO DIFF Routine 06/10/2024 8:5 1 AM CDT Anemia, unspecified type PLATELET ESTIMATE Routine 04/15/2024 9:2 0 AM CDT Iron deficiency anemia, unspecified iron deficiency anemia type RED CELL MORPHOLOGY Routine 04/15/2024 9 :20 AM CDT Iron deficiency anemia, unspecified iron deficiency anemia type IRON PLUS IRON BINDING CAP Routine 04/15/2024 9:20 AM CDT Iron deficiency anemia, unspecified iron deficiency anemia type FERRITIN Routine 04/15/2024 9:20 AM CDT Iron deficiency anemia, unspecified iron deficiency anemia type CBC W PLT NO DIFF Routine 04/15/2024 9:2 0 AM CDT Iron deficiency anemia, unspecified iron deficiency anemia type ANTI HCV Routine 09/01/2022 3:25 PM AGRICULTURIST Need for hepatitis C screening test from Last 3 Months or Most Recently Relevant to Health Maintenance Results * EKG 12 LEAD (07/03/2024 8:19 AM CDT) Only the most recent of2 resultswithin the time period is included. Interpretation Sinus bradycardia with sinus arrhythmia Right bundle branch block Left anterior fascicular block Bifascicular block Minimal voltage criteria for LVH, may be normal variant ( R in aVL ) Septal infarct T wave abnormality, consider lateral ischemia Abnormal ECG When compared with ECG of 18-Jun-2024 21:43, Significant changes have occurred Ventricular Rate 46 BPM Atrial Rate 46 BPM P-R Interval 186 ms QRS Duration 154 ms QT 484 ms QTc 423 ms P [place] 48 degrees R [place] -65 degrees T [place] -39 degrees 07/03/2024 8:19 AM CDT 07/08/2024 9:24 AM CDT Zhang Camacho MD EKG ORD * US SCROTUM W DUPLEX (06/30/2024 10:06 AM CDT) Anatomical Region Laterality Modality SCROTUM, TESTES Ultrasound 06/30/2024 4:57 PM CDT Impressions 06/30/2024 4:57 PM CDT Left hydrocele. No left-sided hernia. Normal testicles. Dictated by Benjamin Mortensen MD @ 06/30/2024 4:57:33 PM (Electronically Signed) Narrative 06/30/2024 4:57 PM CDT For Patients: ??As a result of the Cures Act, medical imaging exams and procedure reports are released immediately into your electronic medical record. ??You may view this report before your referring provider. ??If you have questions, please contact your health care provider. INDICATION: Scrotal mass COMPARISON: 08.19.19 TECHNIQUE: Marcum scale imaging was performed of the scrotum. In addition color Doppler and spectral Doppler analysis was performed of the testes. FINDINGS: The testes demonstrate normal arterial and venous blood flow on color Doppler and spectral Doppler analysis. The testes have uniform echogenicity with no evidence of a suspicious mass or area of inflammation. The right testis measures 4.7 x 3.2 x 2.2 cm in size and the left testis measures 4.7 x 3.8 x 2.0 cm. The epididymis appears normal bilaterally. Left hydrocele is present. No left inguinal hernia. Procedure Note Benjamin Mortensen MD - 06/30/2024 For Patients: As a result of the Cures Act, medical imagingexams and procedure reports are released immediately into your electronicmedical record. You may view this report before your referring provider.If you have questions, please contact your health care provider. INDICATION: Scrotal mass COMPARISON: 08.19.19 TECHNIQUE: Marcum scale imaging was performed of the scrotum. In addition color Dopplerand spectral Doppler analysis was performed of the testes. FINDINGS: The testes demonstrate normal arterial and venous blood flow on colorDoppler and spectral Doppler analysis. The testes have uniformechogenicity with no evidence of a suspicious mass or area ofinflammation. The right testis measures 4.7 x 3.2 x 2.2 cm in size and theleft testis measures 4.7 x 3.8 x 2.0 cm. The epididymis appears normalbilaterally. Left hydrocele is present. No left inguinal hernia. IMPRESSION: Left hydrocele. No left-sided hernia. Normal testicles. Dictated by Benjamin Mortensen MD @ 06/30/2024 4:57:33 PM (Electronically Signed) Rajni Patterson MD US * MR ABDOMEN PANCREAS WWO (06/30/2024 9:09 AM CDT) Anatomical Region Laterality Modality Abdomen, PANCREAS Magnetic Reson ance 07/01/2024 3:31 PM CDT Impressions 07/01/2024 3:31 PM CDT 1. Stable pancreatic body cystic lesion measuring up to 2.[address] from 2022. Motion artifact significantly limits evaluation, although this may represent a side branch IPMN. Additional possible pancreatic body and tail cystic lesions are also poorly evaluated. Consider follow-up MRI in 1 year to evaluate stability. 2. Stable right adrenal nodule measuring 2.1 cm with signal characteristics suggestive of adenoma. Stable left adrenal gland thickening. Dictated by Summer Ken MD @ 07/01/2024 3:31:44 PM (Electronically Signed) Narrative 07/01/2024 3:31 PM CDT For Patients: ??As a result of the Century Cures Act, medical imaging exams and procedure reports are released immediately into your electronic medical record. ??You may view this report before your referring provider. ??If you have questions, please contact your health care provider. INDICATION: Follow-up pancreatic lesion TECHNIQUE: 1.5 T MRI of the abdomen was performed with pre and postcontrast T1 weighted imaging; T2 weighted imaging; diffusion weighted imaging; in and out of phase imaging. 20 mL Dotarem administered COMPARISON: CT abdomen and pelvis 06/18/2024, chest CTA 2023 FINDINGS: Significantly motion degraded exam. Lungs: The lung bases are clear. No pleural or pericardial effusion. Similar large hiatal hernia. Liver: Homogeneous liver parenchyma. No hepatic steatosis. No hepatic masses. Biliary tree and gallbladder: No intra or extrahepatic biliary dilation. Fluid- filled gallbladder without stones. Spleen: Similar scattered punctate hypodense lesions throughout the spleen corresponding to calcification seen on prior CT and likely sequela of prior granulomatous disease Pancreas: Fatty atrophy of the pancreatic parenchyma. No pancreatic masses. No pancreatic duct dilation. Pancreatic body cystic lesion measuring 2.4 cm, similar to chest CT from 2022. There may be additional cystic lesions within the body and tail seen on series 5, image 16 and 20, although these are poorly evaluated secondary to motion artifact. Adrenal glands: Stable right adrenal nodule measuring 2.1 cm (3/12) with signal dropout on out of phase imaging suggestive of intravoxel fat. Stable left adrenal gland nodularity. Kidneys and ureters: No renal masses or hydronephrosis. Bilateral renal cysts GI tract: No evidence of obstruction or inflammation. Vasculature: The IVC and aorta are patent. No abdominal aortic aneurysm. Lymph nodes: No lymphadenopathy. Abdominal wall: Unremarkable Bones: Degenerative change of the imaged spine. Procedure Note Summer Ken MD - 07/01/2024 For Patients: As a result of the Cures Act, medical imagingexams and procedure reports are released immediately into your electronicmedical record. You may view this report before your referring provider.If you have questions, please contact your health care provider. INDICATION: Follow-up pancreatic lesion TECHNIQUE: 1.5 T MRI of the abdomen was performed with pre and postcontrast [id number] imaging; T2 weighted imaging; diffusion weighted imaging; in andout of phase imaging. 20 mL Dotarem administered COMPARISON: CT abdomen and pelvis 06/18/2024, chest CTA 2023 FINDINGS: Significantly motion degraded exam. Lungs: The lung bases are clear. No pleural or pericardial effusion.Similar large hiatal hernia. Liver: Homogeneous liver parenchyma. No hepatic steatosis. No hepaticmasses. Biliary tree and gallbladder: No intra or extrahepatic biliary dilation.Fluid- filled gallbladder without stones. Spleen: Similar scattered punctate hypodense lesions throughout the spleencorresponding to calcification seen on prior CT and likely sequela ofprior granulomatous disease Pancreas: Fatty atrophy of the pancreatic parenchyma. No pancreaticmasses. No pancreatic duct dilation. Pancreatic body cystic lesionmeasuring 2.4 cm, similar to chest CT from 2022. There may be additionalcystic lesions within the body and tail seen on series 5, image 16 and 20,although these are poorly evaluated secondary to motion artifact. Adrenal glands: Stable right adrenal nodule measuring 2.1 cm (3/12) withsignal dropout on out of phase imaging suggestive of intravoxel fat.Stable left adrenal gland nodularity. Kidneys and ureters: No renal masses or hydronephrosis. Bilateral renalcysts GI tract: No evidence of obstruction or inflammation. Vasculature: The IVC and aorta are patent. No abdominal aortic aneurysm. Lymph nodes: No lymphadenopathy. Abdominal wall: Unremarkable Bones: Degenerative change of the imaged spine. IMPRESSION: 1. Stable pancreatic body cystic lesion measuring up to 2.4 cm compared toCT from 2022. Motion artifact significantly limits evaluation, althoughthis may represent a side branch IPMN. Additional possible pancreatic bodyand tail cystic lesions are also poorly evaluated. Consider follow-up MRIin 1 year to evaluate stability. 2. Stable right adrenal nodule measuring 2.1 cm with signalcharacteristics suggestive of adenoma. Stable left adrenal glandthickening. Dictated by Summer Ken MD @ 07/01/2024 3:31:44 PM (Electronically Signed) Joel Munoz MD MR * (ABNORMAL) CBC W PLT NO DIFF (06/18/2024 9:55 PM CDT) Only the most recent of3 resultswithin the time period is included. WHITE BLOOD COUNT 6.2 4.5 - 11.0 thou/cu mm 06/18/2024 10:03 PM [facility] RED BLOOD COUNT 4.52 4.30 - 5.90 mil/cu mm 06/18/2024 10:03 PM [facility] HEMOGLOBIN 13.9 13.5 - 17.5 g/dL 06/18/2024 10:03 PM [facility] HEMATOCRIT 40.3 37.0 - 53.0 % 06/18/2024 10:03 PM [facility] MCV 89 80 - 100 fL 06/18/2024 10:03 PM [facility] MCH 30.8 26.0 - 34.0 pg 06/18/2024 10:03 PM [facility] MCHC 34.5 32.0 - 36.0 g/dL 06/18/2024 10:03 PM [facility] RDW 15.6(H) 11.5 - 15.5 % 06/18/2024 10:03 PM [facility] PLATELET COUNT 223 140 - 440 thou/cu mm 06/18/2024 10:03 PM [facility] MPV 10.8 6.5 - 11.0 fL 06/18/2024 10:03 PM [facility] Blood BLOOD SPECIMEN / Unknown Butterfly / Unknown 06/18/2024 9:55 PM CDT 06/18/2024 10:00 PM CDT Jacobo Ojeda MD HEMATOLOGY Performing Organization Address City/[facility]/ZIP Co de Phone Number [facility] [address] [place] [address] * LIPASE (06/18/2024 9:55 PM CDT) LIPASE 30.1 13.0 - 60.0 IU/L 06/18/2024 10:34 PM T [facility] Blood BLOOD SPECIMEN / Unknown Butterfly / Unknown 06/18/2024 9:55 PM CDT 06/18/2024 10:00 PM CDT Jacobo Ojeda MD CHEMISTRY Performing Organization Address [facility]/ZIP Co de Phone Number [facility] [address] [place] [address] * (ABNORMAL) COMP METABOLIC PANEL (06/18/2024 9:55 PM CDT) Only the most recent of2 resultswithin the time period is included. SODIUM 139 136 - 145 mmol/L 06/18/2024 10:34 PM [facility] POTASSIUM 3.9 3.5 - 5.1 mmol/L 06/18/2024 10:34 PM [facility] CHLORIDE 104 98 - 107 mmol/L 06/18/2024 10:34 PM [facility] CO2,TOTAL 24 22 - 29 mmol/L 06/18/2024 10:34 PM [facility] ANION GAP 11 5 - 18 06/18/2024 10:34 PM [facility] GLUCOSE 105(H) 70 - 99 mg/dL 06/18/2024 10:34 PM [facility] CALCIUM 9.7 8.8 - 10.2 mg/dL 06/18/2024 10:34 PM [facility] BUN 19 8 - 23 mg/dL 06/18/2024 10:34 PM [facility] CREATININE 1.21(H) 0.70 - 1.20 mg/dL 06/18/2024 10:34 PM T [facility] BUN/CREAT RATIO 16 10 - 20 10:34 PM CDT [facility] eGFR 61(L) >90 mL/min/1.7 3m2 06/18/2024 10:34 PM T [facility] Comment:As of 2021, eG FR is calculated by the CKD-EPI creatinine equation without race adjustment. ??eGFR can be influenced by muscle mass, exercise, and diet. ??The reported eGFR is an estimation only and is only applicable if the renal function is stable. ALBUMIN 4.3 4.0 - 4.9 g/dL 06/18/2024 10:34 PM T [facility] PROTEIN,TOTAL 6.9 6.0 - 8.0 g/dL 06/18/2024 10:34 PM [facility] BILIRUBIN,TOTAL 0.5 0.0 - 1.2 mg/dL 06/18/2024 10:34 PM T [facility] ALK PHOSPHATASE 70 40 - 129 IU/L 06/18/2024 10:34 PM T [facility] ALT (SGPT) 15 10 - 50 IU/L 06/18/2024 10:34 PM T [facility] AST (SGOT) 23 10 - 50 IU/L 06/18/2024 10:34 PM T [facility] Blood BLOOD SPECIMEN / Unknown Butterfly / Unknown 06/18/2024 9:55 PM CDT 06/18/2024 10:00 PM CDT Jacobo Ojeda MD CHEMISTRY [facility] [address] [place] [id number] * CT ABDOMEN PELVIS W (06/18/2024 10:22 AM CDT) Anatomical Region Laterality Modality Abdomen, Pelvis, AORTA, LIVER, SPLEEN Computed Tomography 06/18/2024 3:55 PM CDT Narrative 06/18/2024 3:55 PM CDT For Patients: ??As a result of the 21st Century Cures Act, medical imaging exams and procedure reports are released immediately into your electronic medical record. ??You may view this report before your referring provider. ??If you have questions, please contact your health care provider. Indication: Abdominal pain, bilateral lower quadrant Technique: CT ABDOMEN PELVIS W Omnipaque 350 100 ML Please note that all CT scans at this facility use dose modulation, iterative reconstruction, and/or weight-based dosing when appropriate to reduce radiation dose to as low as reasonably achievable. Comparison: CT chest 2023 Findings: A right inguinal hernia is present which measures 3.1 cm in transverse dimension. Loops of ileum are present within the hernia. No small bowel obstruction. No free air, free fluid or abscess. Calcified densities within the right lung base, incidental. Scarring within the medial right lung base. 7.1 cm hiatal hernia. Fatty liver. Calcified granuloma within the liver. Numerous calcified granulomas within the spleen. Bilateral adrenal nodules measuring up to 2.4 cm on the right. Small left renal parapelvic cysts. Simple right renal cysts measuring up to 5.0 cm. No hydronephrosis. Gallbladder normal. Calcification associated with the uncinate process of the pancreas. Low-density lesion arising from the pancreatic head measuring 2.1 cm. Atherosclerotic changes. No enlarged lymph nodes. Postop changes prostatectomy and left-sided pelvic lymph node dissection. Left lateral bladder diverticulum is present measuring 3.0 cm. Multilevel degenerative disc disease. No vertebral body compression fracture. Degenerative facet arthropathy with grade 1 degenerative spondylolisthesis of L5 on S1 Impression: Right inguinal hernia measuring 3.1 cm containing nondistended loops of ileum. No bowel obstruction. No fluid collection. Low-density lesion associated with the pancreatic head measuring 2.1 cm, similar in retrospect. An MRI of the pancreas is recommended for further evaluation. Bilateral adrenal nodules, similar to the prior study. Sequela of granulomatous disease, hiatal hernia, hepatic steatosis and bilateral renal cysts are similar. 3 cm left lateral bladder diverticulum. Please note that all CT scans at this facility use dose modulation, iterative reconstruction, and/or weight-based dosing when appropriate to reduce radiation dose to as low as reasonably achievable. Dictated by Benjamin Mortensen MD @ 06/18/2024 3:55:19 PM (Electronically Signed) Procedure Note Benjamin Mortensen MD - 06/18/2024 For Patients: As a result of the Century Cures Act, medical imagingexams and procedure reports are released immediately into your electronicmedical record. You may view this report before your referring provider.If you have questions, please contact your health care provider. Indication: Abdominal pain, bilateral lower quadrant Technique: CT ABDOMEN PELVIS W Omnipaque 350 100 ML Please note that all CT scans at this facility use dose modulation,iterative reconstruction, and/or weight-based dosing when appropriate toreduce radiation dose to as low as reasonably achievable. Comparison: CT chest 2023 Findings: A right inguinal hernia is present which measures 3.1 cm in transversedimension. Loops of ileum are present within the hernia. No small bowelobstruction. No free air, free fluid or abscess. Calcified densitieswithin the right lung base, incidental. Scarring within the medial rightlung base. 7.1 cm hiatal hernia. Fatty liver. Calcified granuloma withinthe liver. Numerous calcified granulomas within the spleen. Bilateraladrenal nodules measuring up to 2.4 cm on the right. Small left renalparapelvic cysts. Simple right renal cysts measuring up to 5.0 cm. Nohydronephrosis. Gallbladder normal. Calcification associated with theuncinate process of the pancreas. Low-density lesion arising from thepancreatic head measuring 2.1 cm. Atherosclerotic changes. No enlargedlymph nodes. Postop changes prostatectomy and left-sided pelvic lymph nodedissection. Left lateral bladder diverticulum is present measuring 3.0 cm.Multilevel degenerative disc disease. No vertebral body compressionfracture. Degenerative facet arthropathy with grade 1 degenerativespondylolisthesis of L5 on S1 Impression: Right inguinal hernia measuring 3.1 cm containing nondistended loops ofileum. No bowel obstruction. No fluid collection. Low-density lesion associated with the pancreatic head measuring 2.1 cm,similar in retrospect. An MRI of the pancreas is recommended for furtherevaluation. Bilateral adrenal nodules, similar to the prior study. Sequela of granulomatous disease, hiatal hernia, hepatic steatosis andbilateral renal cysts are similar. 3 cm left lateral bladder diverticulum. Please note that all CT scans at this facility use dose modulation,iterative reconstruction, and/or weight-based dosing when appropriate toreduce radiation dose to as low as reasonably achievable. Dictated by Benjamin Mortensen MD @ 06/18/2024 3:55:19 PM (Electronically Signed) Joel Munoz MD CT * (ABNORMAL) FERRITIN (06/10/2024 8:51 AM CDT) Only the most recent of2 resultswithin the time period is included. FERRITIN 22(L) 24 - 380 ng/mL [employer] Blood BLOOD SPECIMEN / Unknown 06/10/2024 8:51 AM CDT 06/10/2024 8:51 AM CDT Joel Munoz MD CHEMISTRY [employer] [facility] [address] [place] [address], [place] [phone] [employer] [address] [place] [address] * RED CELL MORPHOLOGY (04/15/2024 9:20 AM CDT) Pathologist [facility] RBC COMMENT RBC morphology appears normal RBC morphology appears normal, RBC morphology within normal limits for newborns. 04/15/2024 10:18 AM CDT [facility] Blood BLOOD SPECIMEN / Unknown Butterfly / Unknown 04/15/2024 9:20 AM CDT 04/15/2024 9:21 AM CDT Joel Munoz MD HEMATOLOGY [facility] [address] [place] [address], [place] [phone] * PLATELET ESTIMATE (04/15/2024 9:20 AM CDT) Pathologist [facility] PLATELET ESTIMATE Adequate Adequate, No estimate 04/15/2024 10:18 AM CDT [facility] Blood BLOOD SPECIMEN / Unknown Butterfly / Unknown 04/15/2024 9:20 AM CDT 04/15/2024 9:21 AM CDT Joel Munoz MD HEMATOLOGY [facility] [address] [place] [address], [place] [phone] * IRON PLUS IRON BINDING CAP (04/15/2024 9:20 AM CDT) Pathologist [facility] IRON 105 61 - 157 ug/dL 04/15/2024 6:15 PM CDT [facility] UIBC (UNSATURATED) 282 112 - 347 ug/dL 04/15/2024 6:15 PM CDT [facility] IRON BINDING CAPACITY 387 250 - 400 ug/dL 04/15/2024 6:15 PM CDT [facility] IRON,% SATURATION 27 14 - 50 % 04/15/2024 6:15 PM CDT [facility] Blood BLOOD SPECIMEN / Unknown Butterfly / Unknown 04/15/2024 9:20 AM CDT 04/15/2024 9:21 AM CDT Joel Munoz MD CHEMISTRY Performing Organization Address [facility]/ZIP Co de Phone Number [facility] [address] [place] [address], [place] * ANTI HCV (09/01/2022 3:25 PM AGRICULTURIST) HEPATITIS C ANTIBODY Non-React adolfo Non-React adolfo 09/04/2022 7:19 PM AGRICULTURIST [facility] Comment:Antibodies to HCV no t detected; does not exclude the possibility of exposure to HCV. Blood BLOOD SPECIMEN / Unknown Venipuncture / Unknown 09/01/2022 3:25 PM AGRICULTURIST 09/01/2022 3:28 PM AGRICULTURIST Joel Munoz MD SEND OUTS [facility] 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 Peña Urology 12/02/10 Jani Logan 11/22/12
[2024-07-08 10:26] VITALS: BP 212/97; PULSE 54; RESP 20; TEMP 36.7; O2SAT 99
--- NOTE | 2024-07-08 10:30 | W.PM.H&PU ---
History & Physical Update History & Physical Update H&P Reviewed and patient assessed: The following changes are noted below H&P Updates: Patient was cleared for surgery from cardiology standpoint. Patient had scrotal ultrasound that confirmed presence of left hydrocele.
[2024-07-08 10:36] VITALS: BMI 31.8
--- NOTE | 2024-07-08 10:46 | P.GSOP_ITS ---
Operative Note Date of procedure: 07/08/24 Pre-op diagnosis: 1. Right inguinal hernia with incarcerated small intestine. Post-op diagnosis: 1. Right indirect inguinal hernia. Type of Procedure: 1. Open right inguinal hernia repair with mesh. Indications: 78-year-old male on Eliquis s/p prostatectomy with left pelvic lymph node dissection presented to clinic for evaluation of right inguinal hernia. Patient was complaining of lower abdominal pain and was seen by his primary care doctor. He was thought to have inguinal hernias on both sides. Patient states that his lower abdominal painful episodes happen at random times and mostly related to straining with bowel movements. During his workup patient had an abdominal CT that showed right inguinal hernia containing loops of small intestine was no evidence of obstruction. On clinical exam on the right side patient had a moderately sized inguinal hernia that was reducible. A mittal of air was heard when the hernia was reduced. On the left side patient is seen hemiscrotum was enlarged suggestive of a hydrocele. Patient underwent a scrotal ultrasound that confirmed presence of left hydrocele. Patient had no tenderness to palpation of the left hemiscrotum and left inguinal canal. Given patient's clinical history and his physical exam, his an open right inguinal hernia repair was recommended. The procedure was discussed in detail. The risks associated procedure including infection, bleeding, hernia recurrence, nerve pain, and the need for additional procedures were all discussed with the patient, and he agreed to proceed. Procedure Description: After discussing the risks and benefits of the procedure, the patient signed informed consent.? The operative site was marked and the patient was brought to the operating room and placed on the operating table in supine position.? Care was taken to pad the patient's pressure points.?? The patient was then sedated by anesthesia.?? The operative site was then prepped and draped in the usual sterile fashion.? A time-out was then performed. Surgical site was prepped and draped in sterile fashion. Site of the incision was marked with a marking pen and local anesthetic was injected. An oblique incision was made just above and medial to the right inguinal ligament. Subc utaneous tissue was dissected to external obliques. Superficial subcutaneous vascular branches were clamped, divided and tied with 3-0 Vicryl ties. Small incision was made through the external oblique aponeurosis with scalpel. I then used Metzenbaum scissors to dissect under external obliques and extend my incision. Moderate amount of scar tissue was noted in the medial inguinal canal overlying the pubic tubercle. This was dissected bluntly and with Metzenbaum scissors. Mosquito clamps were placed on the edges of external oblique exposing the inguinal floor. The right Ilioinguinal nerve was identified and was going through the plain of dissection. The nerve was divided proximally and distally and a 3 cm segment of it was excised. This was not sent to pathology. I then identified the spermatic cord and the hernia sac. I bluntly dissected subcutaneous tissues in order to place [place] drain around the cord structures. Cremasteric fibers were peeled off and dissected off the hernia sac and cord structures. The indirect hernia sac was from the spermatic cord bluntly and with cautery. A small opening was made in the proximal hernia sac during the dissection. This was oversewn with 3-0 Vicryl suture. The indirect hernia sac was incised and examined from the inside. No intraabdominal organs were incarcerated in the hernia sac. A stitch using 3-0 Vicryl was placed near the base of the hernia sac through the sac and the hernia sac tied off. Hernia sac was then excised and not sent to pathology. This was then pushed into preperitoneal space through the internal ring. Surgical field was examined for bleeding and hemostasis was achieved with cautery and Vicryl ties. 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 This was excised and was slightly thickened on palpation. Given patient's history of prostate cancer, this was sent to pathology. A Bard mesh onlay was also used for hernia repair. The mesh onlay was sutured in place with interrupted 0-0 Neurolon sutures to the conjoint tendon medially and shelving edge laterally, pubic tubercle inferiorly. Simple interrupted sutures were placed using 0-0 Neurolon at the base of internal inguinal ring making it only large enough to fit a tip of one finger through. Spermatic cord was placed back into scrotum. [place] drain was removed. External oblique aponeurosis was closed with a running 3-0 Vicryl. Additional local anesthetic was injected into subcutaneous tissues. Jerry's fascia and subcutaneous tissue was re-approximated with interrupted Vicryl stitches. Skin incision was closed with 4-0 Monocryl subcuticular stitch. Steri strips and sterile dressing were applied over incision. The initial count before skin closure was correct, however, later on after skin closure there was a miscommunication about the needle count and the available suture packages. It was not clear if those were needle packages or tie packages included in the count. A pelvic x-ray was done. The x-ray showed clips from patients prostatectomy with lymph node dissection with no curved needles in the patient. It was determined to be safe to proceed with completion of the procedure. Patient tolerated this procedure well and was transferred to PACU in stable condition. Findings: Indirect inguinal hernia with no incarcerated small intestine. Repaired with mesh. At the end of the case there was miscommunication about needle count and packages. Pelvic x-ray was obtained that did not show retained foreign bodies. Pelvic x-ray showed clips from patient's previous prostatectomy. Anesthesia: MAC and local Surgeon: Rajni Patterson MD Estimated blood loss (mL): 5 Additional Specimen Information: 1. Cord lipoma. Condition: stable Disposition: same day
[2024-07-08] MEDS: LACTATED RINGERS 500 ML 500 ML 125 ML IV (10:59)
[2024-07-08] MEDS: CEFAZOLIN 2 GM INJ IVP (11:13)
[2024-07-08] MEDS: BUPIVACAINE 0.25% 30 ML INJECTION (11:16)
[2024-07-08] MEDS: LIDOCAINE 1%-EPI 1:100,000 20 ML INFILTRATI (11:16)
--- NOTE | 2024-07-08 12:28 | CRLHL7_ITS ---
For Patients: As a result of the Century Cures Act, medical imaging exams and procedure reports are released immediately into your electronic medical record. You may view this report before your referring provider. If you have questions, please contact your health care provider. INDICATION: Missing needle, inguinal hernia repair COMPARISON: None TECHNIQUE: 1 view pelvis, intra op. FINDINGS: Devices: Surgical clips throughout the pelvis. There is a 5 millimeter linear metallic object in the left lateral pelvis just above the surgical clips. Mild stool. No dilated bowel. Heavy atherosclerotic vascular calcifications. IMPRESSION: There is a 5 millimeter linear object in the left pelvis. It projects just above the level of the surgical clips but has a different morphology. According to the technologist note this exam was reviewed by the surgeon in the operating room, without contacting the radiologist. Dictated by Yarely Arredondo MD @ 07/08/2024 12:58:40 PM (Electronically Signed)
[2024-07-08 12:45] VITALS: BP 168/90; PULSE 54; RESP 20; TEMP 36.2; O2SAT 97
--- NOTE | 2024-07-08 12:46 | W.ANESCHARGE ---
Anesthesia Charges Start Date/Time Anesthesia Start Date: 07/08/24 Anesthesia Start Time: 10:58 Stop Date/Time Anesthesia Stop Date: 07/08/24 Anesthesia Stop Time: 12:44
[2024-07-08 13:00] VITALS: BP 187/96; PULSE 51; RESP 20; TEMP 36.4; O2SAT 96
[2024-07-08 13:15] VITALS: BP 186/91; PULSE 49; RESP 20; O2SAT 96
[2024-07-08 13:31] VITALS: BP 172/107; PULSE 59; RESP 20; O2SAT 99
--- NOTE | 2024-07-08 13:32 | SUR.PHASEII ---
anesthesia is aware of pt hypertensive issues. He is currently working with His Primary on bp medication changes to address the situation. Pt appears fine, no signs of acute distress.
[2024-07-08 13:47] VITALS: BP 165/90; PULSE 63; RESP 20; O2SAT 97
== END 2024-07-08 14:11 | disposition home or self-care (01) ==
PROVIDERS: PCP Surgery; Visit Provider Surgery
PROC: (CPT 49505; principal; 2024-07-08 11:15)
DX: K40.90 Unilateral inguinal hernia, without obstruction or gangrene, not specified as recurrent (principal)
CPT/HCPCS: 49505; 00830; 72170; 88304; C1781; J0665; J0690; J2371; J2405; J2704; J3010; J7120